=== PATIENT | female | born 1965 | race Caucasian/White ===

== ENCOUNTER 2018-01-03 13:04 | Day surgery (SDC) | payer OTHER ==
[2018-01-03] MEDS ORDERED: PROPOFOL 40 ML (16:24)
== END 2018-01-03 17:03 | disposition home or self-care (01) ==
LOC: GIL 13:04
DX: Z12.11 Encounter for screening for malignant neoplasm of colon (principal); D12.6 Benign neoplasm of colon, unspecified; K64.8 Other hemorrhoids; K64.4 Residual hemorrhoidal skin tags; I10 Essential (primary) hypertension; E11.9 Type 2 diabetes mellitus without complications
CPT/HCPCS: 45380; 82962; 84703; 88305